=== PATIENT | female | born 1990 | race Caucasian/White ===

== ENCOUNTER 2016-11-30 23:05 | Emergency (ER) | payer OTHER ==
--- NOTE | 2016-11-30 23:51 | ER Document Report ---
ED Cardiac - General Mode of Arrival: Ambulatory Information source: Patient - HPI Patient complains to provider of: Chest tightness, Shortness of breath Associated symptoms: Other - see above <BRANDI JUSTIN - Last Filed: 12/01/16 00:11> <IRISMICHELLE HOMERO - Last Filed: 12/01/16 05:13> - General Chief Complaint: Chest Pain Stated Complaint: CHEST PAIN Notes: 26 year old female with history of atrial flutter and migraines presents to the ED complaining of chest pressure that began at 22:00 this evening while laying down in bed. Patient sat up after the pressure began and felt that she was tachycardic. Patient proceeded to call the [facility] nursing line and was told that she is having an allergic reaction to Topomax. Patient states that she was put on Topomax today for her history of migraines and explains that she took her first dose today. Patient has had similar episodes in the past, but not as long as the present one. Patient is additionally complaining of diaphoresis and shortness of breath, and denies nausea and abdominal pain. Patient is also on Metoprolol, Zyrtec, and Flonase. (BRANDI JUSTIN) - Related Data Allergies/Adverse Reactions: acetaminophen Allergy (Verified 11/30/16 23:19) Past Medical History - General Information source: Patient - Social History Smoking Status: Never Smoker Chew tobacco use (# tins/day): No Frequency of alcohol use: None Drug Abuse: None Family History: Reviewed & Not Pertinent Patient has suicidal ideation: No Patient has homicidal ideation: No Pulmonary Medical History: Reports: Hx Asthma - as a child Surgical Hx: Negative <BRANDI JUSTIN - Last Filed: 12/01/16 00:11> Review of Systems - Review of Systems Constitutional: See HPI, Diaphoresis EENT: No symptoms reported Cardiovascular: See HPI, Chest pain - chest pressure, Heart racing Respiratory: See HPI, Short of breath Gastrointestinal: No symptoms reported. denies: Abdominal pain, Nausea Genitourinary: No symptoms reported Female Genitourinary: No symptoms reported Musculoskeletal: No symptoms reported Skin: No symptoms reported Hematologic/Lymphatic: No symptoms reported Neurological/Psychological: No symptoms reported <BRANDI JUSTIN - Last Filed: 12/01/16 00:11> Physical Exam - Vital signs Interpretation: Tachycardic - General General appearance: Alert In distress: None - HEENT Head: Normocephalic, Atraumatic Eyes: Normal Extraocular movements intact: Yes Pupils: PERRL Mucous membranes: Dry - Respiratory Respiratory status: No respiratory distress Breath sounds: Normal - Cardiovascular Rhythm: Regular, Tachycardia Heart sounds: Normal auscultation - Abdominal Inspection: Normal - Back Back: Normal - Extremities General upper extremity: Normal inspection, Normal ROM General lower extremity: Normal inspection, Normal ROM - Neurological Neuro grossly intact: Yes Cognition: Normal Orientation: AAOx4 [place] Coma Scale Eye Opening: Spontaneous Dea Coma Scale Verbal: Oriented Dea Coma Scale Motor: Obeys Commands [place] Coma Scale Total: 15 Speech: Normal - Psychological Associated symptoms: Normal affect, Normal mood - Skin Skin Temperature: Warm Skin Moisture: Dry Skin Color: Normal <BRANDI JUSTIN - Last Filed: 12/01/16 00:11> <MICHELLE SIMMONS - Last Filed: 12/01/16 05:13> - Vital signs Vitals: Temp Pulse Resp BP Pulse Ox 98.7 F 124 H 16 126/66 H 98 11/30/16 23:22 11/30/16 23:22 11/30/16 23:22 11/30/16 23:22 11/30/16 23:22 (BRANDI JUSTIN) (MICHELLE SIMMONS) Course <BRANDI JUSTIN - Last Filed: 12/01/16 00:11> - Laboratory Result Diagrams: 12/01/16 01:31 12/01/16 00:35 <MICHELLE SIMMONS - Last Filed: 12/01/16 05:13> - Re-evaluation Re-evalutation: 12/01/16 04:11 Patient appears well. Ambulated around the department with no distress. Patient has an elevation in LFTs and some, cytopenia. Patient states that she is not aware of this in the past. Patient denies taking any medications besides one dose of Topamax and Toprol daily. 12/01/16 05:09 No PE on exam. Patient will be given a copy of her blood work and discharged home. She is to stop taking Topamax. Stable for discharge. Understands agrees with plan. (MICHELLE SIMMONS) - Vital Signs Vital signs: Temp Pulse Resp BP Pulse Ox 98.8 F 124 H 21 H 104/67 97 12/01/16 02:57 11/30/16 23:22 12/01/16 04:01 12/01/16 04:01 12/01/16 04:01 (BRANDI JUSTIN) (MICHELLE SIMMONS) - Laboratory Laboratory results interpreted by me: 12/01/16 12/01/16 12/01/16 00:35 00:35 01:31 RDW 14.6 H Plt Count 78 L Seg Neuts % (Manual) 37 L Monocytes % (Manual) 2 L D-Dimer 1.80 H AST 136 H ALT 245 H Alkaline Phosphatase 179 H Albumin 3.4 L (MICHELLE SIMMONS) Discharge <BRANDI JUSTIN - Last Filed: 12/01/16 00:11> <MICHELLE SIMMONS - Last Filed: 12/01/16 05:13> - Discharge Clinical Impression: Tachycardia, Medication adverse effect, Thrombocytopenia, Elevated LFTs Condition: Stable Disposition: HOME, SELF-CARE Instructions: Thrombocytopenia ([facility]), Liver Function Abnormality ([facility]), Medication Side Effects ([facility]), Sinus Tachycardia ([facility]) Additional Instructions: Please take a copy of your blood work with you yo your doctor to follow-up. Return if you have any worsening or concerning symptoms. Scribe Attestation: 12/01/16 05:13 I personally performed the services described in the documentation, reviewed and edited the documentation which was dictated to the scribe in my presence, and it accurately records my words and actions. (MICHELLE SIMMONS) Scribe Documentation - Scribe Written by Sascha:: Sascha Doe, 11/30/2016 23:52 acting as scribe for :: Iris <BRANDI JUSTIN - Last Filed: 12/01/16 00:11>
[2016-12-01] MEDS ORDERED: NORMAL SALINE 1000 ML 1,000 ML IV ONE (00:11)
[2016-12-01 01:21] LABS: ALANINE AMINOTRANSFERASE 245 U/L (9-52); ALBUMIN 3.4 g/dL (3.5-5.0); ALKALINE PHOSPHATASE 179 U/L (38-126); ANION GAP 10 (5-19); ASPARTATE AMINO TRANSFERASE 136 U/L (14-36); BILIRUBIN,TOTAL 0.8 mg/dL (0.2-1.3); BLOOD UREA NITROGEN 9 mg/dL (7-20); CALCIUM 8.6 mg/dL (8.4-10.2); CARBON DIOXIDE 24 mmol/L (22-30); CHLORIDE 107 mmol/L (98-107); GLUCOSE 105 mg/dL (75-110); SODIUM 141.3 mmol/L (137-145)
[2016-12-01 01:40] LABS: HEMATOCRIT 37.1 % (36.0-47.0); HEMOGLOBIN 12.5 g/dL (12.0-15.5); HGB HCT DIFFERENCE 0.4; MEAN CORPUSCULAR HEMOGLOBIN 27.3 pg (27.0-33.4); MEAN CORPUSCULAR HGB CONC 33.6 g/dL (32.0-36.0); MEAN CORPUSCULAR VOLUME 81 fl (80-97); RED BLOOD COUNT 4.57 10^6/uL (3.72-5.28); RED CELL DISTRIBUTION WIDTH 14.6 % (11.5-14.0); WHITE BLOOD COUNT 6.9 10^3/uL (4.0-10.5)
[2016-12-01 02:08] LABS: BAND NEUTROPHILS % (MANUAL) 3 % (3-5); BASOPHILS % (MANUAL) 1 % (0-2); EOSINOPHILS % (MANUAL) 0 % (0-6); LYMPHOCYTES % (MANUAL) 27 % (13-45); TOTAL CELLS COUNTED 100
[2016-12-01 02:09] LABS: TOXIC GRANULATION 1+; TOXIC VACUOLATION PRESENT
[2016-12-01 02:10] LABS: ANISOCYTOSIS SLIGHT; HYPOCHROMASIA SLIGHT
[2016-12-01 02:11] LABS: SPHEROCYTES SLIGHT
[2016-12-01 05:15] VITALS: BP 95/66
--- NOTE | 2016-12-01 10:23 | EKG REPORT ---
SEVERITY:- BORDERLINE ECG - SINUS TACHYCARDIA BORDERLINE T ABNORMALITIES, DIFFUSE LEADS : Confirmed by: Kristofer Bain 01-Dec-2016 10:21:43
[2016-12-04 11:40] LABS: PATH REVIEW PATHOLOGIST REVIEWED
== END 2016-12-01 05:24 | disposition home or self-care (01) ==
LOC: ER 23:05
DX: R00.0 Tachycardia, unspecified (principal); R07.89 Other chest pain; T44.7X5A Adverse effect of beta-adrenoreceptor antagonists, initial encounter; D69.6 Thrombocytopenia, unspecified; R79.89 Other specified abnormal findings of blood chemistry; I48.92 Unspecified atrial flutter; R61 Generalized hyperhidrosis; R06.02 Shortness of breath; G43.909 Migraine, unspecified, not intractable, without status migrainosus; Z79.899 Other long term (current) drug therapy
CPT/HCPCS: 93005; 99285; 96360; 36415; 82553; 82550; 84443; 84703; 85025; 80053; 84484; 85379; 71275; 93010; J7030